=== PATIENT | female | born 1950 | race African-American/Black ===

== ENCOUNTER 2018-07-19 10:57 | Inpatient (IN) | payer OTHER ==
[~2018-07-19] VITALS: Ht 165.1 cm; Wt 64.4 kg
[2018-07-19 11:00] VITALS: BP 121/60
[2018-07-19 11:18] LABS: ABSOLUTE NEUTROPHILS 5.3 thou/uL (1.4-8.2); BASOPHILS 0.8 % (0.0-2.0); EOSINOPHILS 1.2 % (0.0-3.0); HEMATOCRIT 36.6 % (37.0-47.0); HEMOGLOBIN 12.7 gm/dL (12.0-15.0); LYMPHOCYTES 21.6 % (24.0-44.0); MCH 31.5 pg (26.0-34.0); MCHC 34.8 g/dL (28.0-37.0); MCV 90.7 fL (80.0-100.0); MONOCYTES 5.7 % (1.0-8.0); PLATELET COUNT 223 thou/uL (150-400); POLYS 70.7 % (36.0-66.0); RBC 4.04 mil/uL (4.20-5.00); RDW 12.2 % (10.5-14.5); WBC 7.5 thou/uL (4.0-11.0)
[2018-07-19 11:27] LABS: CALCIUM 9.1 mg/dL (8.5-10.1); CREATININE 1.1 mg/dL (0.6-1.0); POTASSIUM 3.1 mmol/L (3.5-5.1)
[2018-07-19 11:32] LABS: ALBUMIN 3.6 g/dL (3.4-5.0); TOTAL BILIRUBIN 0.6 mg/dL (<0.1-1.0); TOTAL PROTEIN 7.3 g/dL (6.4-8.2)
[2018-07-19 12:57] LABS: URINE BILIRUBIN NEGATIVE (Negative); URINE BLOOD TRACE (Negative); URINE CLARITY CLEAR; URINE COLOR YELLOW; URINE GLUCOSE-RANDOM* NEGATIVE (Negative); URINE KETONES NEGATIVE (Negative); URINE LEUKOCYTES-REFLEX NEGATIVE (Negative); URINE NITRITE-REFLEX NEGATIVE (Negative); URINE PROTEIN (DIPSTICK) NEGATIVE (Negative); URINE SPECIFIC GRAVITY 1.015 (1.005-1.035); URINE UROBILINOGEN 0.2 E.U./dl (0.2-1.0)
[2018-07-19 18:34] VITALS: BP 121/60
[2018-07-19] MEDS ORDERED: LIPITOR80 MG PO (18:52)
[2018-07-19] MEDS ORDERED: OLANZAPINE2.5 MG PO (18:53)
[2018-07-19] MEDS ORDERED: ARICEPT10 MG PO (18:53)
[2018-07-19] MEDS ORDERED: ARICEPT 5 MG TAB5 MG PO (18:54)
[2018-07-19] MEDS ORDERED: BUSPIRONE HCL5 MG PO (18:54)
[2018-07-19 19:05] VITALS: BP 122/69
[2018-07-19 19:45] VITALS: BP 116/64
[2018-07-20 04:30] VITALS: BP 126/59
[2018-07-20 06:55] LABS: HEMATOCRIT 34.8 % (37.0-47.0); HEMOGLOBIN 11.7 gm/dL (12.0-15.0); MCH 30.6 pg (26.0-34.0); MCHC 33.5 g/dL (28.0-37.0); MCV 91.4 fL (80.0-100.0); RBC 3.81 mil/uL (4.20-5.00); RDW 12.7 % (10.5-14.5)
[2018-07-20 07:08] LABS: CALCIUM 9.2 mg/dL (8.5-10.1); CREATININE 0.9 mg/dL (0.6-1.0); POTASSIUM 3.4 mmol/L (3.5-5.1)
[2018-07-20 07:30] VITALS: BP 129/57
[2018-07-20 16:50] VITALS: BP 109/62
[2018-07-20 23:36] VITALS: BP 122/68
[2018-07-21] VITALS (8 sets, daily range): BP systolic 120–159; BP diastolic 63–76
[2018-07-22 08:55] VITALS: BP 121/66
[2018-07-22 21:10] VITALS: BP 98/50
[2018-07-23 07:11] VITALS: BP 127/62
[2018-07-23 07:52] LABS: CALCIUM 9.2 mg/dL (8.5-10.1); CREATININE 0.9 mg/dL (0.6-1.0)
[2018-07-23] MEDS ORDERED: TYLENOL325 MG PO (14:47)
[2018-07-23 20:20] VITALS: BP 98/56
[2018-07-24 07:40] VITALS: BP 120/67
== END 2018-07-24 15:23 | DRG 884 ==
LOC: ER 10:57 → EROBS 13:52 → 4E 13:52 → EROBS 13:52 → 4E 16:29 → SICU 07-20 18:56
PROVIDERS: Emergency Medicine; Hospitalist; Nurse Practitioner Family
DX: F03.91 Unspecified dementia, unspecified severity, with behavioral disturbance (principal); R41.0 Disorientation, unspecified; F17.210 Nicotine dependence, cigarettes, uncomplicated; E78.5 Hyperlipidemia, unspecified; E87.6 Hypokalemia; Z88.0 Allergy status to penicillin; Z71.6 Tobacco abuse counseling; Z79.899 Other long term (current) drug therapy
CPT/HCPCS: 10084; 15002